=== PATIENT | female | born 1965 | race American Indian/Alaskan Native ===

== ENCOUNTER 2017-02-01 21:04 | Emergency (ER) | payer MEDICAID ==
[2017-02-01 21:26] VITALS: BP 171/94
--- NOTE | 2017-02-01 22:28 | Emergency Department Report ---
ED ENT HPI - General Chief complaint: Earache Stated complaint: GALLO/L EAR PAIN Time Seen by Provider: 02/01/17 22:17 Source: patient Mode of arrival: Ambulatory Limitations: No Limitations - History of Present Illness Initial comments: This is a 52-year-old female that presents with left ear discomfort. Patient stated she may think a mosquito daughter near this morning and S1 chest pain. Patient denies any fever, chills, headache, nausea vomiting, chest pain, shortness of breath, external ear pain. Patient denies any hearing loss or abnormalities. Patient stated has allergies to penicillin. MD complaint: ear pain (left ear) -: Gradual, This morning Location: L ear Severity: mild Severity scale (0 -10): 9 Quality: aching Consistency: constant Associated Symptoms: denies: fever, cough, gum swelling, toothache, pain with swallowing, sore throat, tinnitus, hearing loss, discharge from ear, rhinorrhea - Related Data Previous Rx's Medication Instructions Recorded Last Taken Type Azithromycin [Zithromax Z-SHAE] 250 mg PO DAILY #6 tablet 02/01/17 Unknown Rx Allergies Allergy/AdvReac Type Severity Reaction Status Date / Time Penicillins Allergy Swelling Verified 02/01/17 21:26 ED Dental HPI - General Chief complaint: Earache Stated complaint: GALLO/L EAR PAIN Time Seen by Provider: 02/01/17 22:17 Source: patient Mode of arrival: Ambulatory Limitations: No Limitations - Related Data Previous Rx's Medication Instructions Recorded Last Taken Type Azithromycin [Zithromax Z-SHAE] 250 mg PO DAILY #6 tablet 02/01/17 Unknown Rx Allergies Allergy/AdvReac Type Severity Reaction Status Date / Time Penicillins Allergy Swelling Verified 02/01/17 21:26 ED Review of Systems ROS: Stated complaint: GALLO/L EAR PAIN Other details as noted in HPI Constitutional: denies: chills, fever Eyes: denies: eye pain, eye discharge, vision change ENT: denies: ear pain, throat pain Respiratory: denies: cough, shortness of breath, wheezing Cardiovascular: denies: chest pain, palpitations Endocrine: no symptoms reported Gastrointestinal: denies: abdominal pain, nausea, diarrhea Genitourinary: denies: urgency, dysuria, discharge Musculoskeletal: denies: back pain, joint swelling, arthralgia Skin: denies: rash, lesions Neurological: denies: headache, weakness, paresthesias Psychiatric: denies: anxiety, depression Hematological/Lymphatic: denies: easy bleeding, easy bruising ED Past Medical Hx - Past Medical History Previous Medical History?: Yes Hx Arthritis: Yes Additional medical history: 3 ,bunion left foot - Social History Smoking Status: Never Smoker Substance Use Type: None - Medications Home Medications: Home Medications Medication Instructions Recorded Confirmed Last Taken Type Azithromycin [Zithromax Z-SHAE] 250 mg PO DAILY #6 tablet 02/01/17 Unknown Rx ED Physical Exam - General Limitations: No Limitations General appearance: alert, in no apparent distress - Head Head exam: Present: atraumatic, normocephalic - Eye Eye exam: Present: normal appearance, PERRL, EOMI Pupils: Present: normal accommodation - ENT ENT exam: Present: normal exam, normal orophraynx, mucous membranes moist, normal external ear exam - Expanded ENT Exam Expanded Ear exam: Present: normal external inspection TM/Canal exam: Erythema: Left TM, Bulging: Left TM Mouth exam: Present: normal external inspection, tongue normal. Absent: drooling, trismus, muffled voice Teeth exam: Present: normal inspection Throat exam: Positive: normal inspection. Negative: tonsillar erythema, tonsillomegaly, tonsillar exudate, R peritonsillar mass, L peritonsillar mass - Neck Neck exam: Present: normal inspection, full ROM. Absent: tenderness, meningismus, lymphadenopathy, thyromegaly - Respiratory Respiratory exam: Present: normal lung sounds bilaterally. Absent: respiratory distress - Cardiovascular Cardiovascular Exam: Present: regular rate, normal rhythm. Absent: systolic murmur, diastolic murmur, rubs, gallop - GI/Abdominal GI/Abdominal exam: Present: soft, normal bowel sounds - Extremities Exam Extremities exam: Present: normal inspection - Back Exam Back exam: Present: normal inspection - Neurological Exam Neurological exam: Present: alert, oriented X3 - Psychiatric Psychiatric exam: Present: normal affect, normal mood - Skin Skin exam: Present: warm, dry, intact, normal color. Absent: rash - Other Other exam information: Denies mastiod tenderness. Denies discharge. Denies hearing loss. ED Course Vital Signs 02/01/17 21:21 Temperature 98.1 F Pulse Rate 92 H Respiratory 18 Rate Blood Pressure 171/94 O2 Sat by Pulse 100 Oximetry ED Medical Decision Making - Medical Decision Making Ed course: This is a 52 year old female that presents with Otitis Media of Left ear 1- after my physical exam, patient received ZpaK due to allergies to PCN. Patient was instructed to finish full course the parents as prescribed. 2- patient was instructed to follow-up with her primary care doctor in 3-5 days. 3- at time time of discharge, the patient does not seem toxic or ill in appearance. No acute signs of distress noted. Patient agrees to discharge treatment plan of care. No further questions noted by the patient. Critical care attestation.: If time is entered above; I have spent that time in minutes in the direct care of this critically ill patient, excluding procedure time. ED Disposition Clinical Impression: Otitis media Qualifiers: Otitis media type: unspecified Laterality: left Chronicity: unspecified Qualified Code(s): H66.92 - Otitis media, unspecified, left ear Disposition: DISCHARGED TO HOME OR SELFCARE Is pt being admited?: No Does the pt Need Aspirin: No Condition: Stable Instructions: Otitis Media (ED), Azithromycin (By mouth) Additional Instructions: Take azithromycin as prescribed. Take azithromycin 500 mg on day 1 followed by 250 mg once daily on days 2 to 5. Follow-up with your primary care doctor in 3-5 days. Prescriptions: Azithromycin [Zithromax Z-SHAE] 250 mg PO DAILY #6 tablet Referrals: PRIMARY CAREMD [Primary Care Provider] - 3-5 Days [facility] [Outside] - 3-5 Days [facility] [Outside] - 3-5 Days ABDON VIERA JR, MD [Staff Physician] - 3-5 Days Forms: Work/School Release Form(ED)
== END 2017-02-01 23:13 | disposition home or self-care (01) ==
LOC: ED 21:04
DX: H66.92 Otitis media, unspecified, left ear (principal); M19.90 Unspecified osteoarthritis, unspecified site; Z88.0 Allergy status to penicillin
CPT/HCPCS: 99282

== ENCOUNTER 2018-04-02 10:31 | Emergency (ER) | payer MEDICAID ==
[2018-04-02 10:44] VITALS: BP 177/100
--- NOTE | 2018-04-02 13:23 | Emergency Department Report ---
ED General Adult HPI - General Chief complaint: Eye Problems Stated complaint: EYE PAIN Time Seen by Provider: 04/02/18 12:49 Source: patient Mode of arrival: Ambulatory Limitations: No Limitations - History of Present Illness Initial comments: Patient is a 53-year-old [place] female who noticed in the mirror earlier today that she had a bloodshot left eye. Patient denies any trauma. Patient states this happened spontaneously and she does have some mild irritation to that eye. The patient denies any H chest pain shortness of breath fevers chills nausea vomiting diarrhea. - Related Data Previous Rx's Medication Instructions Recorded Last Taken Type Azithromycin [Zithromax Z-SHAE] 250 mg PO DAILY #6 tablet 02/01/17 Unknown Rx Azithromycin Oral Liqd [Zithromax 250 mg PO QDAY #40 ml 02/02/17 Unknown Rx 200 MG/5 ML ORAL LIQ] Amlodipine Besylate [Norvasc] 5 mg PO DAILY #14 tablet 04/02/18 Unknown Rx Naphazoline HCl/Pheniramine 2 drop OP TID #1 bottle 04/02/18 Unknown Rx [Naphcon-A Eye Drops] Allergies Allergy/AdvReac Type Severity Reaction Status Date / Time Penicillins Allergy Swelling Verified 02/01/17 21:26 ED Review of Systems ROS: Stated complaint: EYE PAIN Other details as noted in HPI Comment: All other systems reviewed and negative ED Past Medical Hx - Past Medical History Hx Arthritis: Yes Additional medical history: 3 ,bunion left foot - Social History Smoking Status: Never Smoker Substance Use Type: None - Medications Home Medications: Home Medications Medication Instructions Recorded Confirmed Last Taken Type Azithromycin [Zithromax Z-SHAE] 250 mg PO DAILY #6 tablet 02/01/17 Unknown Rx Azithromycin Oral Liqd [Zithromax 250 mg PO QDAY #40 ml 02/02/17 Unknown Rx 200 MG/5 ML ORAL LIQ] Amlodipine Besylate [Norvasc] 5 mg PO DAILY #14 tablet 04/02/18 Unknown Rx Naphazoline HCl/Pheniramine 2 drop OP TID #1 bottle 04/02/18 Unknown Rx [Naphcon-A Eye Drops] ED Physical Exam - General Limitations: No Limitations General appearance: alert, in no apparent distress - Head Head exam: Present: atraumatic, normocephalic - Eye Eye exam: Present: normal appearance, other (left eye has a small subconjunctival hemorrhage) - ENT ENT exam: Present: mucous membranes moist - Neck Neck exam: Present: normal inspection - Respiratory Respiratory exam: Present: normal lung sounds bilaterally. Absent: respiratory distress - Cardiovascular Cardiovascular Exam: Present: regular rate, normal rhythm. Absent: systolic murmur, diastolic murmur, rubs, gallop - GI/Abdominal GI/Abdominal exam: Present: soft, normal bowel sounds - Extremities Exam Extremities exam: Present: normal inspection - Back Exam Back exam: Present: normal inspection - Neurological Exam Neurological exam: Present: alert, oriented X3 - Psychiatric Psychiatric exam: Present: normal affect, normal mood - Skin Skin exam: Present: warm, dry, intact, normal color. Absent: rash ED Course Vital Signs 04/02/18 10:41 Temperature 98.2 F Pulse Rate 101 H Respiratory 16 Rate Blood Pressure 177/100 O2 Sat by Pulse 99 Oximetry ED Medical Decision Making - Medical Decision Making Patient was noted to have elevated blood pressure 177/100. This most likely a contributor factor to the patient's subconjunctival hemorrhage. Patient started on low-dose blood pressure medicine and will be followed with her primary doctor in next 2 weeks to ensure that her blood pressure is stabilized. Critical care attestation.: If time is entered above; I have spent that time in minutes in the direct care of this critically ill patient, excluding procedure time. ED Disposition Clinical Impression: Hypertensive urgency Subconjunctival hemorrhage Qualifiers: Laterality: left Qualified Code(s): H11.32 - Conjunctival hemorrhage, left eye Disposition: - TO HOME OR SELFCARE Is pt being admited?: No Does the pt Need Aspirin: No Condition: Stable Instructions: Hypertension (ED), Subconjunctival Hemorrhage (ED) Prescriptions: Amlodipine Besylate [Norvasc] 5 mg PO DAILY #14 tablet Naphazoline HCl/Pheniramine [Naphcon-A Eye Drops] 2 drop OP TID #1 bottle Referrals: PRIMARY CARE, [Primary Care Provider] - 7-10 days Time of Disposition: 13:26
== END 2018-04-02 13:41 | disposition home or self-care (01) ==
LOC: ED 10:31
DX: H11.32 Conjunctival hemorrhage, left eye (principal); R03.0 Elevated blood-pressure reading, without diagnosis of hypertension; M19.90 Unspecified osteoarthritis, unspecified site; Z88.0 Allergy status to penicillin
CPT/HCPCS: 99282

== ENCOUNTER 2019-11-11 21:37 | Emergency (ER) | payer MEDICAID ==
[2019-11-11 21:47] VITALS: BP 134/77
--- NOTE | 2019-11-11 22:19 | Event Note ---
ED Screening Note Date of service: 11/11/19 Time: 22:15 ED Screening Note: This is a 54 y.o. F. that presents to the ER with right ankle and knee pain s/p fall. Patient states she had a ground level fall at a skating rink last night. States leg twisted back when she fell. Reports pain worse with weight bearing. PMH of HTN This initial assessment/diagnostic orders/clinical plan/treatment(s) is/are subject to change based on patients health status, clinical progression and re-assessment by fellow clinical providers in the ED. Further treatment and workup at subsequent clinical providers discretion. Patient/guardian urged not to elope from the ED as their condition may be serious if not clinically assessed and managed. Initial orders include: XR right ankle and knee
--- NOTE | 2019-11-11 23:14 | XRay Report ---
RIGHT ANKLE, 3 VIEWS INDICATION / CLINICAL INFORMATION: MAIN: swelling and pain, s/p fall; Right ankle pain, S/P fall yesterday, while roller skating. COMPARISON: None available. FINDINGS: There is mildly displaced oblique fracture through the distal fibula, involving the metadiaphysis and involving the distal tibiofibular joint. No additional fractures noted. Prominent lateral soft tissu e swelling is present. IMPRESSION: Mildly displaced distal fibular oblique fracture with involvement of the distal tibiofibu lar joint. Signer Name: Evy Preist MD Signed: 11/11/2019 11:10 PM Workstation Name: [id number]
--- NOTE | 2019-11-11 23:15 | XRay Report ---
RIGHT KNEE, 3 VIEWS INDICATION / CLINICAL INFORMATION: MAIN: swelling and pain, s/p fall; Right ankle pain, S/P fall yesterday, while roller skating. COMPARISON: None available. FINDINGS: No fracture, dislocation, or joint effusion is identified. Mild degenerative changes are present thro ughout the knee. IMPRESSION: No fracture or dislocation. Signer Name: Evy Priest MD Signed: 11/11/2019 11:10 PM Workstation Name: [id number]
[2019-11-11] MEDS ORDERED: IBUPROFEN 600 MG TAB PO ONE (23:30)
[2019-11-11] MEDS ORDERED: ONDANSETRON 4 MG ODT TAB PO ONE (23:30)
[2019-11-11] MEDS ORDERED: HYDROmorphone 1 MG/1 ML INJ IM ONE (23:30)
--- NOTE | 2019-11-12 01:00 | Emergency Department Report ---
ED Fall HPI - General Chief Complaint: Extremity Injury, Lower Stated Complaint: RT ANKLE PAIN Time Seen by Provider: 11/11/19 22:15 Source: patient Mode of arrival: Ambulatory - History of Present Illness Initial Comments: Patient is a 54-year-old -Citizen Of [place] female with no past medical history who presents to the ED with complaint of acute onset persistent severe right a nkle and knee pain and swelling after she tripped and fell down landing on the right ankle and knee while rollerskating at a skating rink 24 hours ago. Patient states that she is has not been able to bear weight on the right leg because of severe pain. Patient denies head and neck injuries, back pain, nausea, vomiting, chest pain, shortness of breath, numbness and tingling or weakness of lower extremities bilaterally, urinary or bowel incontinence or saddle paresthesia. MD Complaint: fall, other (right ankle and knee pain) -: Sudden, hour(s) (24) Fall From: other (roller skating) When Fall Occurred: 24 hours [employer] Fall Witnessed: yes, by family Place Fall Occurred: other (skating ring) Loss of Consciousness: none Prolonged Down Time?: no Symptoms Prior to Fall: none Location: other (right ankle and knee) Location - Extremities: Right: Knee (pain and swelling), Ankle (right ankle pain and swelling) Severity: severe Severity scale (0 -10): 9 Quality: sharp, aching Context: tripped/slipped Associated Symptoms: denies. denies: headache, neck pain, numbness, weakness, chest paint, shortness of breath, abdominal pain, hematuria, lightheaded, vertigo, confusion - Related Data Previous Rx's Medication Instructions Recorded Last Taken Type Naphazoline HCl/Pheniramine 2 drop OP TID #1 bottle 04/02/18 Unknown Rx [Naphcon-A Eye Drops] Amlodipine Besylate [Norvasc] 5 mg PO DAILY #14 tablet 12/25/18 Unknown Rx oxyCODONE /ACETAMINOPHEN [Percocet 1 tab PO Q6HR PRN #10 tablet 12/25/18 Unknown Rx 5/325] Cyclobenzaprine [Flexeril] 10 mg PO Q8H PRN #21 tablet 11/12/19 Unknown Rx Ibuprofen [Motrin] 800 mg PO Q8HR PRN #30 tablet 11/12/19 Unknown Rx Oxycodone HCl/Acetaminophen 1 each PO Q6HR PRN #12 tablet 11/12/19 Unknown Rx [Percocet 7.5/325 mg] Allergies Allergy/AdvReac Type Severity Reaction Status Date / Time Penicillins Allergy Swelling Verified 12/23/18 15:37 ED Review of Systems ROS: Stated complaint: RT ANKLE PAIN Other details as noted in HPI Constitutional: denies: chills, fever Eyes: denies: eye pain, eye discharge, vision change ENT: denies: ear pain, throat pain Respiratory: denies: cough, shortness of breath, wheezing Cardiovascular: denies: chest pain, palpitations Endocrine: no symptoms reported Gastrointestinal: denies: abdominal pain, nausea, diarrhea Genitourinary: denies: urgency, dysuria, discharge Musculoskeletal: joint swelling (right ankle and knee), arthralgia (right ankle and knee), myalgia. denies: back pain Skin: denies: rash, lesions Neurological: denies: headache, weakness, paresthesias Psychiatric: denies: anxiety, depression Hematological/Lymphatic: denies: easy bleeding, easy bruising ED Past Medical Hx - Past Medical History Previous Medical History?: Yes Hx Hypertension: Yes Hx Heart Attack/AMI: No Hx Congestive Heart Failure: No Hx Diabetes: No Hx Deep Vein Thrombosis: No Hx Arthritis: Yes Hx Asthma: No Hx COPD: No Hx HIV: No Additional medical history: 3 ,bunion left foot - Surgical History Past Surgical History?: Yes Hx Coronary Stent: No Hx Pacemaker: No Hx Internal Defibrillator: No Additional Surgical History: C-sections X 3, Left bunionectomy - Social History Smoking Status: Never Smoker Substance Use Type: None - Medications Home Medications: Home Medications Medication Instructions Recorded Confirmed Last Taken Type Naphazoline HCl/Pheniramine 2 drop OP TID #1 bottle 04/02/18 Unknown Rx [Naphcon-A Eye Drops] Amlodipine Besylate [Norvasc] 5 mg PO DAILY #14 tablet 12/25/18 Unknown Rx oxyCODONE /ACETAMINOPHEN [Percocet 1 tab PO Q6HR PRN #10 tablet 12/25/18 Unknown Rx 5/325] Cyclobenzaprine [Flexeril] 10 mg PO Q8H PRN #21 tablet 11/12/19 Unknown Rx Ibuprofen [Motrin] 800 mg PO Q8HR PRN #30 tablet 11/12/19 Unknown Rx Oxycodone HCl/Acetaminophen 1 each PO Q6HR PRN #12 tablet 11/12/19 Unknown Rx [Percocet 7.5/325 mg] ED Physical Exam - General Limitations: No Limitations General appearance: alert, in no apparent distress - Head Head exam: Present: atraumatic, normocephalic, normal inspection - Eye Eye exam: Present: normal appearance, PERRL, EOMI Pupils: Present: normal accommodation - ENT ENT exam: Present: normal exam, normal orophraynx, mucous membranes moist, TM's normal bilaterally, normal external ear exam - Neck Neck exam: Present: normal inspection, full ROM - Respiratory Respiratory exam: Present: normal lung sounds bilaterally. Absent: respiratory distress, wheezes, rales, rhonchi, chest wall tenderness, accessory muscle use, decreased breath sounds - Cardiovascular Cardiovascular Exam: Present: regular rate, normal rhythm, normal heart sounds. Absent: systolic murmur, diastolic murmur, rubs, gallop - GI/Abdominal GI/Abdominal exam: Present: soft, normal bowel sounds. Absent: tenderness, guarding, hyperactive bowel sounds, hypoactive bowel sounds, organomegaly - Extremities Exam Extremities exam: Present: normal inspection, tenderness (Palpable severe right ankle and knee tenderness with swelling and limited range of motion due to pain), normal capillary refill, joint swelling. Absent: full ROM (Limited range of motion of right ankle and knee joints due to pain), calf tenderness - Back Exam Back exam: Present: normal inspection, full ROM. Absent: tenderness, CVA tenderness (R), muscle spasm, paraspinal tenderness, vertebral tenderness - Neurological Exam Neurological exam: Present: alert, oriented X3, CN II-XII intact, normal gait, reflexes normal - Psychiatric Psychiatric exam: Present: normal affect, normal mood - Skin Skin exam: Present: warm, dry, intact, normal color. Absent: rash ED Course Vital Signs 11/11/19 21:45 Temperature 99.0 F Pulse Rate 88 Respiratory 20 Rate Blood Pressure 134/77 O2 Sat by Pulse 99 Oximetry ED Medical Decision Making - Radiology Data Radiology results: report reviewed, image reviewed Findings [facility] [address] [place] [address] XRay Report Signed Patient: HORTENCIA MENDIETA MR#: [id number] : 1965 Acct:[id number] Age/Sex: 54 / F ADM Date: 11/11/19 Loc: ED Attending Dr: Ordering Physician: THIERRY MILLS Date of Service: 11/11/19 Procedure(s): XR ankle 3+V RT Accession Number(s): [id number] cc: THIERRY MILLS Fluoro Time In Minutes: RIGHT ANKLE, 3 VIEWS INDICATION / CLINICAL INFORMATION: MAIN: swelling and pain, s/p fall; Right ankle pain, S/P fall yesterday, while roller skating. COMPARISON: None available. FINDINGS: There is mildly displaced oblique fracture through the distal fibula, involving the metadiaphysis and involving the distal tibiofibular joint. No additional fractures noted. Prominent lateral soft tissue swelling is present. IMPRESSION: Mildly displaced distal fibular oblique fracture with involvement of the distal tibiofibular joint. Signer Name: Evy Priest MD Signed: 11/11/2019 11:10 PM Workstation Name: [id number] Transcribed By: JR Dictated By: Evy Priest MD Electronically Authenticated By: Evy Priest MD Signed Date/Time: 11/11/192309 DD/ 07 TD/TT: Findings [facility] [address] [place] [address] XRay Report Signed Patient: HORTENCIA MENDIETA MR#: [id number] : 1965 Acct:[id number] Age/Sex: 54 / F ADM Date: 11/11/19 Loc: ED Attending Dr: Ordering Physician: THIERRY MILLS Date of Service: 11/11/19 Procedure(s): XR knee 3V RT Accession Number(s): [id number] cc: THIERRY MILLS Fluoro Time In Minutes: RIGHT KNEE, 3 VIEWS INDICATION / CLINICAL INFORMATION: MAIN: swelling and pain, s/p fall; Right ankle pain, S/P fall yesterday, while r [place] skating. COMPARISON: None available. FINDINGS: No fracture, dislocation, or joint effusion is identified. Mild degenerative changes are present throughout the knee. IMPRESSION: No fracture or dislocation. Signer Name: Evy Priest MD Signed: 11/11/2019 11:10 PM Workstation Name: [id number] Transcribed By: Dictated By: Evy Priest MD Electronically Authenticated By: Evy Priest MD Signed Date/Time: 11/11/192309 DD/ 09 TD/TT: - Medical Decision Making This is a 54-year-old female who presented to the ED with complaint of acute onset persistent severe right knee and right ankle pain with swelling after she tripped and fell down on a skating rink while rollerskating 24 hours ago. In the ED, patient is alert and oriented x3 and is not in distress but appears to be in significant pain. Patient was treated for pain in the ED and right knee x-ray shows no acute fractures or subluxations. The right ankle x-ray however shows a mildly displaced oblique fracture through the distal fibula, involving the metadiaphysis and involving the distal tibiofibular joint. No additional fractures noted. Prominent lateral soft tissue swelling is present. The right knee joint was splinted with Dayne wrap. The right ankle joint was splinted with a posterior long leg splint and on reevaluation, patient is neurovascularly intact after the splint was placed. Patient was discharged home on pain medications and muscle relaxants and also given crutches in the ED for ease of ambulation. Patient was discharged home and given a referral to the orthopedic surgeon on-call Dr. Javed for further evaluation. Patient was advised to contact Dr. Javed's office first thing in the morning on Thursday, November 14, 2019 to schedule a follow-up appointment. Patient was however advised return to the ED immediately if symptoms get worse. - Differential Diagnosis Ankle fracture; Knee fracture; Knee sprain; muscle strain; contusion Critical care attestation.: If time is entered above; I have spent that time in minutes in the direct care of this critically ill patient, excluding procedure time. ED Disposition Clinical Impression: Displaced physeal fracture of distal end of right fibula Qualifiers: Encounter type: initial encounter Qualified Code(s): S89.301A - Unspecified physeal fracture of lower end of right fibula, initial encounter for closed fracture Sprain of right knee/leg Qualifiers: Encounter type: initial encounter Qualified Code(s): S83.91XA - Sprain of unspecified site of right knee, initial encounter Sprain of right foot Qualifiers: Encounter type: initial encounter Qualified Code(s): S93.601A - Unspecified sprain of right foot, initial encounter Disposition: TO HOME OR SELFCARE Is pt being admited?: No Does the pt Need Aspirin: No Condition: Stable Instructions: Ankle Fracture (ED), Knee Sprain (ED), Muscle Strain (ED) Additional Instructions: Right ankle x-ray showed displaced distal right fibular fracture. Right knee x- ray was unremarkable. Therefore take pain medications and muscle relaxants as needed with food, drink plenty of fluids and follow-up with the orthopedic surgeon on-call Dr. Javed for further evaluation and treatment. Please contact Dr. Javed's office first thing on ThursdayNovember 14, 2019 to schedule a follow-up appointment. Return to the ED immediately if symptoms get worse. Prescriptions: Cyclobenzaprine [Flexeril] 10 mg PO Q8H PRN #21 tablet PRN Reason: Muscle Spasm Ibuprofen [Motrin] 800 mg PO Q8HR PRN #30 tablet PRN Reason: Pain , Severe (7-10) Oxycodone HCl/Acetaminophen [Percocet 7.5/325 mg] 1 each PO Q6HR PRN #12 tablet PRN Reason: Pain Referrals: IRINA JAVED MD [Staff Physician] - 3-5 Days Forms: Work/School Release Form(ED) Time of Disposition: 01:08 Print Language: CROATIAN
== END 2019-11-12 01:38 | disposition home or self-care (01) ==
LOC: ED 21:37
DX: S89.391A Other physeal fracture of lower end of right fibula, initial encounter for closed fracture (principal); S83.91XA Sprain of unspecified site of right knee, initial encounter; I10 Essential (primary) hypertension; M19.91 Primary osteoarthritis, unspecified site; Z98.890 Other specified postprocedural states; Z88.0 Allergy status to penicillin; Z79.1 Long term (current) use of non-steroidal anti-inflammatories (NSAID); Z79.899 Other long term (current) drug therapy; W01.0XXA Fall on same level from slipping, tripping and stumbling without subsequent striking against object, initial encounter; Y93.89 Activity, other specified; Y92.89 Other specified places as the place of occurrence of the external cause; Y99.8 Other external cause status
CPT/HCPCS: 29505; 73562; 73610; 96372; 99284; J1170; Q0162

== ENCOUNTER 2019-12-29 11:00 | Outpatient (CLI) | payer MEDICAID ==
--- NOTE | 2019-12-29 14:21 | XRay Report ---
EXAMINATION: Right ankle radiograph, 3 views CLINICAL INFORMATION: History of right ankle fracture. Follow-up evaluation. COMPARISON: Right ankle radiograph, 11/11/2019 FINDINGS: Minimally displaced distal fibular fracture is again noted. Soft tissue swelling has decrea sed. No additional acute bony abnormality is visualized. IMPRESSION: Overall stable appearance of mildly displaced distal fibular fracture. Signer Name: Michelle Orellana MD Signed: 12/29/2019 2:16 PM Workstation Name: [id number]
--- NOTE | 2019-12-29 14:22 | XRay Report ---
EXAMINATION: Right knee radiograph, 2 views CLINICAL INFORMATION: Right knee pain after trauma several weeks ago. COMPARISON: Right knee radiograph, 11/11/2019 FINDINGS: There are minimal degenerative changes of the right knee without evidence for acute fractur e or focal soft tissue swelling. Signer Name: Michelle Orellana MD Signed: 12/29/2019 2:17 PM Workstation Name: [id number]
== END 2019-12-29 11:01 | disposition home or self-care (01) ==
LOC: XRAY 11:00
PROVIDERS: ATTEND Physician Assistant
DX: M84.363 Stress fracture, right fibula (principal); M17.11 Unilateral primary osteoarthritis, right knee; X58.XXXS Exposure to other specified factors, sequela

== ENCOUNTER 2020-02-13 09:42 | Outpatient (CLI) | payer MEDICAID ==
--- NOTE | 2020-02-13 10:29 | XRay Report ---
Right ankle, 3 views INDICATION: Follow-up fracture COMPARISON: 12/29/2019 FINDINGS: There is a healing fracture through the lateral malleolus with only slight distraction mayra ining. The ankle mortise and medial malleolus are intact. No new abnormality. Signer Name: Chivo Guillory MD Signed: 02/13/2020 10:25 AM Workstation Name: [id number]
== END 2020-02-13 09:43 | disposition home or self-care (01) ==
LOC: XRAY 09:42
PROVIDERS: ATTEND Internal Medicine
DX: S82.64XD Nondisplaced fracture of lateral malleolus of right fibula, subsequent encounter for closed fracture with routine healing (principal); X58.XXXD Exposure to other specified factors, subsequent encounter